=== PATIENT | female | born 1975 | race Caucasian/White ===

== ENCOUNTER 2022-06-20 20:01 | Emergency (ER) | payer OTHER, SELFPAY ==
--- NOTE | ~2022-06-20 | XR_ITS ---
EXAMINATION: XR CHEST CLINICAL INFORMATION: Chest pain with hypertension COMPARISON: None TECHNIQUE: 2 views of the chest were obtained. FINDINGS: Minimal density on the lateral film the anterior lung zone. This could represent a small area of atelectasis or scarring or mild infiltrate. The lung remy are otherwise grossly clear. The cardiac silhouette is within normal limits. The hilar structures do not appear pathologically enlarged. There is no effusion. XR/XR chest 2V IMPRESSION: Mild density seen anterior on the lateral study may represent a small area of atelectasis or scar or possibly mild infiltrate.
--- NOTE | 2022-06-20 20:16 | ECG_ITS ---
Test Reason : cp Blood Pressure : / mmHG Vent. Rate : 061 BPM Atrial Rate : 061 BPM P-R Int : 138 ms QRS Dur : 096 ms QT Int : 410 ms P-R-T Axes : -12 043 088 degrees QTc Int : 412 ms Normal sinus rhythm Minimal voltage criteria for LVH, may be normal variant ( [place] product ) Nonspecific T wave abnormality Abnormal ECG No previous ECGs available Referred By: Generic ED Physician Electronically Signed By:BILLY URIOSTEGUI MD
[2022-06-20 20:33] VITALS: BP 236/121; PULSE 69; RESP 18; TEMP 36.2; O2SAT 98; BMI 32.7
[2022-06-20 21:04] LABS: MANUAL DIFF FLAG NO
[2022-06-20 21:11] LABS: Basophils Percent Auto 0.4 % (0-2); Eosinophils Absolute Auto 0.2 X10*3/uL (0.0-0.4); Eosinophils Percent Auto 3.2 % (0-4); Hematocrit 46.5 % (37.0-47.0); Hemoglobin 15.3 g/dl (12.0-16.0); Imm Gran Abs Auto 0.01 X10*3/uL (0.00-0.03); Imm Gran Pct Auto 0.1 % (0.0-0.4); Lymphocytes Absolute Auto 2.7 X10*3/uL (1.2-4.9); Mean Corpuscular HGB Conc 32.9 g/dl (31.0-35.0); Mean Platelet Volume 9.9 fL (9.4-12.3); Monocytes Absolute Auto 0.6 X10*3/uL (0.1-1.2); Monocytes Percent Auto 8.2 % (2-11); Neutrophils Absolute Auto 3.3 x10*3/uL (2.0-8.3); Neutrophils Percent Auto 48.1 % (45-73); Platelet Count 252 X10*3/uL (160-400); Red Blood Count 5.47 X10*6/uL (4.20-5.50); Red Cell Distribution Width 13.7 % (11.0-16.0); White Blood Count 6.8 X10*3/uL (4.8-10.8)
[2022-06-20 21:24] LABS: Anion Gap 12 (12-20); Blood Urea Nitrogen 12 mg/dL (9-16); Calcium 9.4 mg/dL (8.4-10.2); Carbon Dioxide 28 mmol/L (22-29); Chloride 104 mmol/L (96-108); Creatinine Clr Calc Pharmacy 91.3; Estimated Glomerular Filt Rate > 60; Glucose Random 93 mg/dL (60-115); Potassium 4.8 mmol/L (3.3-5.1); Sodium 139 mmol/L (135-145)
[2022-06-20 21:29] LABS: Troponin-I High Sensitivity < 3.5 ng/L (<3.5-17.0)
--- NOTE | 2022-06-20 21:50 | ED.GENADULT ---
HPI - General Adult General Chief complaint: General Medical Stated complaint: high blood pressure Time Seen by Provider: 06/20/22 21:50 Source: patient Mode of arrival: ambulatory Limitations: no limitations History of Present Illness HPI narrative: patient with strong family history of hypertension patient never had high blood pressure for last 3 months noted blood pressure on the higher side ranging from 160 /100 to 196/107 today also noticed slight chest discomfort for last 3 days no shortness of breath no headache no leg swelling patient has not seen her PCP in last 3 years Related Data Previous Rx's Medication Instructions Recorded hydrochlorothiazide 25 mg tablet 25 mg PO QAM #30 tabs 06/20/22 lisinopril 20 mg tablet 20 mg PO DAILY #30 tabs 06/20/22 Allergies Allergy/AdvReac Type Severity Reaction Status Date / Time No Known Allergies Allergy Verified 06/20/22 20:39 Review of Systems Review of Systems: Yes all other systems are reviewed and are negative PMFSH Social History Social History Advance Directives: No Physical Exam ED Vital Signs: Vital Signs - 24 hr 06/20/22 20:33 Temperature 97.1 F Pulse Rate 69 Respiratory Rate 18 Blood Pressure 236/121 H Pulse Oximetry 98 Oxygen Delivery Method Room Air BMI result Body Mass Index 32.7 Appearance: Alert. Oriented X3. No acute distress. Eyes: no pallor or icterus ENT: Pharynx normal. Oral Mucosa moist Neck: Normal inspection. Neck supple. CVS: Normal heart rate and rhythm. Pulses normal. Respiratory: No respiratory distress. Equal air entry bilateral, no wheezing/rales/rhonchi Abdomen: Soft and nontender. Bowel sounds are present, no mass palpable, no CVA tenderness Skin: Skin warm and dry. Normal skin color. Normal skin turgor. Extremities: No lower extremity edema. No calf tenderness Neuro: Oriented X 3. No motor deficit. No sensory deficit.No cerebellar signs , cranial nerves II-XII intact Medications Administered Discontinued Medications Generic Name Dose Route Start Last Admin Trade Name Freq PRN Reason Stop Dose Admin Labetalol HCl 20 mg 06/20/22 21:51 06/20/22 22:02 Labetalol Hcl 100 Mg/20 Ml Vial IVPUSH 06/20/22 21:52 20 mg ONCE ONE Administration Medical Decision Making Medical Decision Making MDM Narrative: patient excluded hypertension with no end-organ damage labs are stable EKG without any ischemic changes will give labetalol IV blood pressure improved will give p.o. lisinopril Lab Data [facility] Lab Attestation statement: I reviewed the patient's lab results. 06/20/22 20:58 06/20/22 20:58 Labs: Lab Results 06/20/22 06/20/22 06/20/22 Range/Units 20:57 20:58 20:58 WBC 6.8 (4.8-10.8) X10*3/uL RBC 5.47 (4.20-5.50) X10*6/uL Hgb 15.3 (12.0-16.0) g/dl Hct 46.5 (37.0-47.0) % MCV 85.0 (80.0-98.0) fL MCH 28.0 (27.0-33.0) pg MCHC 32.9 (31.0-35.0) g/dl RDW 13.7 (11.0-16.0) % Plt Count 252 (160-400) X10*3/uL MPV 9.9 (9.4-12.3) fL Immature Gran % (Auto) 0.1 (0.0-0.4) % Neut % (Auto) 48.1 (45-73) % Lymph % (Auto) 40.0 (20-40) % [place] % (Auto) 8.2 (2-11) % Eos % (Auto) 3.2 (0-4) % Baso % (Auto) 0.4 (0-2) % Lymph # (Auto) 2.7 (1.2-4.9) X10*3/uL [place] # (Auto) 0.6 (0.1-1.2) X10*3/uL Eos # (Auto) 0.2 (0.0-0.4) X10*3/uL Baso # (Auto) 0.0 (0.0-0.2) X10*3/uL Abs Immat Gran (auto) 0.01 (0.00-0.03) X10*3/uL Absolute Neuts (auto) 3.3 (2.0-8.3) x10*3/uL Absolute Nucleated RBC 0.000 (0.0-0.012) X10*3/uL Nucleated RBC % (auto) 0.0 (0.0-0.2) /100WBC Sodium 139 (135-145) mmol/L Potassium 4.8 (3.3-5.1) mmol/L Chloride 104 (96-108) mmol/L Carbon Dioxide 28 (22-29) mmol/L Anion Gap 12 (12-20) BUN 12 (9-16) mg/dL Creatinine 0.76 (0.5-1.4) mg/dL Estim Creat Clear Calc 91.3 Estimated GFR > 60 Random Glucose 93 (60-115) mg/dL Calcium 9.4 (8.4-10.2) mg/dL Troponin I High Sens < 3.5 (<3.5-17.0) ng/L Independent Interpretation I performed an independent interpretation of an: EKG Interpretation: normal sinus rhythm heart rate 61 beats per minute LVH no acute ST T wave changes no acute ischemia Discharge Plan Discharge Clinical Impression: Accelerated essential hypertension Patient Disposition: Home, Self-Care Instructions: Hypertension (ED) Additional Instructions: decrease salt intake start taking blood pressure medication as prescribed check blood pressure at least twice daily before taking the blood pressure medication and before going to bed which should be less than 135/85 if blood pressure higher than 160/100 you may take extra tablet of lisinopril. Follow with PCP for further workup Prescriptions: New lisinopril 20 mg tablet 20 mg PO DAILY Qty: 30 3RF hydrochlorothiazide 25 mg tablet 25 mg PO QAM Qty: 30 2RF
[2022-06-20] MEDS: Labetalol HCL 100 MG/20 ML VIAL 20 MG IVPUSH (22:02)
[2022-06-20] MEDS: lisinopriL 20 MG TABLET PO (23:21)
[2022-06-20 23:22] VITALS: BP 174/94; PULSE 81; RESP 18; O2SAT 99
--- NOTE | 2022-06-20 23:29 | PC.NURSE ---
Addendum entered by Feli Osullivan 06/20/22 23:47: IV cath tip intact upon removal Original Note: discharge instructions given/explained, ambulates safely/independently, no sob, no respiratory distress, can speak in full sentences, alert and oriented, all questions answered
== END 2022-06-20 23:47 | disposition home or self-care (01) ==
PROVIDERS: Emergency Provider Internal Medicine
DX: I10 Essential (primary) hypertension (principal); Z79.899 Other long term (current) drug therapy
CPT/HCPCS: 36415; 71046; 80048; 84484; 85025; 93005; 96374; 99284